=== PATIENT | female | born 1965 | race Caucasian/White ===

== ENCOUNTER 2020-10-16 10:22 | Emergency (ER) | payer OTHER, SELFPAY ==
[2020-10-16 10:25] VITALS: BP 173/97; PULSE 107; RESP 20; TEMP 36.2; O2SAT 99; BMI 31.8
[2020-10-16] MEDS: EPINEPHrine 1 mg/mL INJ 0.3 MG SUBCUT (10:28)
[2020-10-16] MEDS: famotidine 20 mg/2 mL INJ 40 MG IVP (10:46)
[2020-10-16] MEDS: sodium chloride 0.9% 1,000 ML 999 ML IV (10:47)
--- NOTE | 2020-10-16 11:30 | W.ED.ALLEREA ---
HPI - Allergic Reaction General: Chief complaint: Allergic Reaction Stated complaint: Reaction Time Seen by Provider: 10/16/20 10:31 History of Present Illness: HPI narrative: 55-year-old female into the emergency department over concerns of an allergic reaction. The patient was recently prescribed azithromycin and shortly after taking it had an abrupt onset of difficulty breathing and shortness of breath with diffuse rash over torso. Patient denies any other new or different medications or ingestions. She did have this once previously to cephalexin. The patient reports she has a little bit of tingling in her extremities as well. MD complaint: allergic reaction Onset (ago): minute(s) Associated symptoms: Reports difficulty breathing, dizziness, nausea and rash; Deny hoarseness Severity: moderate Treatment prior to arrival: benadryl Review of Systems General: Reports: 10 or more systems reviewed and unremarkable except in HPI and below Eyes: Denies: change in vision or blurry vision ENMT: Denies: hoarseness or swelling of lips/tongue Resp: Reports: dyspnea GI: Reports: nausea Skin/Breast: Reports: rash Neuro: Reports: dizziness Physical Exam Const: COMMON NORMALS: no acute distress, average body habitus, patient oriented x3, no limitations, healthy appearing, alert and well nourished HENMT: COMMON NORMALS: normocephalic HEAD & SCALP: normocephalic Eye: COMMON NORMALS: Equal, round and reactive pupils present, EOMs intact bilaterally and conjunctivae normal CONJUNCTIVA: Yes conjunctivae normal PUPIL: Yes Equal, round and reactive pupils present Neck/C-Spine: COMMON NORMALS: no meningeal signs and no JVD Resp: COMMON NORMALS: normal respiratory effort, No retractions, No use of accessory muscles, clear to auscultation bilaterally and percussion normal AUSCULTATION: clear to auscultation bilaterally PERCUSSION: percussion normal Cardio: COMMON NORMALS: no JVD GI: COMMON NORMALS: Normal to inspection, nondistended, normoactive bowel sounds present, Soft to palpation, non-tender, No hepatosplenomegaly present, no masses and no bruits PALPATION: Yes Soft to palpation and Yes No hepatosplenomegaly present : COMMON NORMALS: Yes no CVA tenderness BLADDER/KIDNEY EXAM: Yes no CVA tenderness Back/Pelvis: COMMON NORMALS: no CVA tenderness Extremity: COMMON NORMALS: normal to inspection, full ROM, capillary refill normal, no joint enlargement, no clubbing, cyanosis or edema, no calf tenderness and no pedal edema Neuro: COMMON NORMALS: patient oriented x3 SENSORIUM/ORIENTATION: Yes alert MENINGEAL SIGNS: Yes no meningeal signs Skin: GENERAL SKIN EXAM: erythema Course Vital Signs: Vital signs: Vital Signs Temperature 97.2 F L 10/16/20 10:25 Pulse Rate 107 H 10/16/20 10:25 Respiratory Rate 20 H 10/16/20 10:25 Blood Pressure 173/97 10/16/20 10:25 Pulse Oximetry 99 10/16/20 10:25 MDM - Allergic Reaction MDM Narrative: Medical decision making narrative: 55-year-old female in with shortness of breath and rash shortly after taking azithromycin. Patient will be treated as anaphylactic reaction she will need epinephrine administration given multisystem involvement. Patient will be observed over time routine labs and vital signs. Patient reports that she had a very similar reaction to cephalexin. The patient responded nicely to our interventions here her blood pressure came down her symptoms largely resolved. I recommended that she have an EpiPen to put her on a short course of steroids and I want her to follow-up with an railroader. Return precautions follow-up recommendations were discussed. 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
[2020-10-16 12:16] VITALS: BP 149/82; PULSE 95; RESP 18; O2SAT 98
== END 2020-10-16 12:18 | disposition home or self-care (01) ==
PROVIDERS: Emergency Provider Family Medicine
DX: T78.40XA Allergy, unspecified, initial encounter (principal); T36.3X5A Adverse effect of macrolides, initial encounter
CPT/HCPCS: 12345; 96361; 96372; 96374; 96375; 99282; 99283; J0171; J2930; J3490; J7030

== ENCOUNTER → 2021-08-26 10:00 | Outpatient (BNVA) | payer OTHER, SELFPAY | PROVIDERS: Visit Provider Dentist | DX: Z20.822 Contact with and (suspected) exposure to COVID-19 (principal); Z01.812 Encounter for preprocedural laboratory examination | CPT/HCPCS: 87426 ==

== ENCOUNTER 2023-06-07 14:47 | Outpatient (CLI) | payer OTHER, SELFPAY ==
--- NOTE | 2023-06-07 15:01 | MM_ITS ---
WS: [id number] VIEWS: MLO and CC views both breasts. 3D digital tomosynthesis is also included in this exam. Comparison made with prior exam of 03/12/2008, 08/14/2016.. Findings: There was no sign of mass, architectural distortion or suspicious calcification in either breast. The re are scattered areas of fibroglandular density impression: MM/[place] [id number] BI-RADS: 2-Benign FOLLOW-UP: 1 Year Follow-up This mammogram was also analyzed by the Computer Aided Detection System [employer] Service Technician.
== END 2023-06-07 14:48 | disposition home or self-care (01) ==
LOC: RAD 14:51 → MOBLMAM 15:00
PROVIDERS: PCP Family Medicine; Visit Provider Family Medicine
DX: Z12.31 Encounter for screening mammogram for malignant neoplasm of breast (principal)
CPT/HCPCS: 77063; 77067